=== PATIENT | female | born 1940 | race Caucasian/White ===

== ENCOUNTER 2020-09-16 11:49 | Day surgery (SDC) | payer MEDICARE ==
[~2020-09-16] VITALS: Ht 157.5 cm; Wt 64.2 kg
[~2020-09-16 11:49] MED LIST: ALEN70TA66 PO; AMLO5TAB4 PO; CEFAZOLIN 1,000 MG ONE; FENTANYL PF 250 MCG/5ML ONE; GEMF600T8 PO; GLYCOPYRROLATE 0.2MG/1ML, 5ML ONE; LISI-170 PO; METO25TA91 PO; NEOSTIGMINE 1 MG/ML, 10ML ONE; OMEP20TA62 PO; ONDANSETRON 2MG/ML, 2ML ONE; PROPOFOL 10 MG/ML, 20ML ONE; RIVA20TA PO; ROCURONIUM 10MG/ML,5ML ONE; URSO300C27 PO
[2020-09-16] MEDS ORDERED: VANCOMYCIN 1,000 MG ONE (11:53)
[2020-09-16] MEDS ORDERED: TRANEXAMIC ACID 100 MG/ML, 10ML ONE (11:53)
[2020-09-16] MEDS ORDERED: SODIUM CHLORIDE 0.9% 50 ML ONE (11:53)
[2020-09-16] MEDS ORDERED: KETOROLAC 60 MG/2 ML ONE (11:53)
[2020-09-16] MEDS ORDERED: ROPIvacaine/PF 0.2%, 20 ML ONE (11:53)
[2020-09-16] MEDS ORDERED: EPINEPHRINE 1 MG/ML, 1ML ONE (11:54)
[2020-09-16] MEDS ORDERED: CHLORHEXIDINE 15 ML UDC MM ONE (12:30)
[2020-09-16] MEDS ORDERED: LACTATED RINGERS 1,000 ML IV SCH (12:30)
[2020-09-16] MEDS ORDERED: GABAPENTIN 300 MG CAPSULE PO ONE (12:30)
[2020-09-16] MEDS ORDERED: ACETAMINOPHEN 500 MG TABLET PO ONE (12:30)
[2020-09-16] MEDS ORDERED: [UNRECOGNIZED DRUG - OTHER] PO (12:36)
[2020-09-16] MEDS ORDERED: ALLEGRA PO (12:36)
[2020-09-16] MEDS ORDERED: GAS X PO (12:36)
[2020-09-16] MEDS ORDERED: GREEN TEA PO (12:36)
[2020-09-16 13:07] VITALS: BP 144/77
[2020-09-16] MEDS ORDERED: TRANEXAMIC ACID 1,000 MG in SODIUM CHLORIDE 0.9% 100 ML IVPB ONE (14:00)
[2020-09-16] MEDS ORDERED: OXYcodone IR 5MG TABLET PO PRN (14:00)
[2020-09-16] MEDS ORDERED: HYDROmorphone 1 MG/ML, 1ML INJ IVPush PRN ×2 (14:00→14:30)
[2020-09-16] MEDS ORDERED: CEFAZOLIN PMX 1GM/50ML 50 ML IVPB SCH (14:00)
[2020-09-16] MEDS ORDERED: ONDANSETRON 4 MG TABLET PO PRN (14:00)
[2020-09-16] MEDS ORDERED: DIPHENHYDRAMINE 50 MG/ML, 1ML IVPush PRN (14:00)
[2020-09-16] MEDS ORDERED: ALUMINUM/MAG/SIMETHICONE 30 ML UDC PO PRN (14:00)
[2020-09-16] MEDS ORDERED: POLYETHYLENE GLYCOL 17 GM PACKET PO PRN (14:00)
[2020-09-16] MEDS ORDERED: DEXAMETHASONE 4 MG/ML, 1ML IVPush SCH (14:00)
[2020-09-16] MEDS ORDERED: DIPHENHYDRAMINE 50 MG CAPSULE PO PRN (14:00)
[2020-09-16] MEDS ORDERED: MAGNESIUM HYDROXIDE 8%, 30ML UDC PO PRN (14:00)
[2020-09-16] MEDS ORDERED: POTASSIUM CHLORIDE 20 MEQ in D5%-0.45% NACL 1,000 ML IV SCH (14:00)
[2020-09-16] MEDS ORDERED: PSYLLIUM PACKET PO PRN (14:00)
[2020-09-16] MEDS ORDERED: ONDANSETRON 2MG/ML, 2ML IVPush PRN (14:00)
[2020-09-16] MEDS ORDERED: MEPERIDINE/PF 25MG/0.5ML IVPush PRN (14:30)
[2020-09-16] MEDS ORDERED: morphine SULFATE 10 MG/ML, 1ML IVPush PRN (14:30)
[2020-09-16] MEDS ORDERED: hydrALAzine 20 MG/ML, 1ML IV PRN (14:30)
[2020-09-16] MEDS ORDERED: ACETAMINOPHEN 325 MG TABLET PO PRN (14:30)
[2020-09-16] MEDS ORDERED: OXYcodone 5 MG/5 ML ORAL.SOL UDC PO PRN (14:30)
[2020-09-16] MEDS ORDERED: LABETALOL 5MG/ML, 20ML IV PRN (14:30)
[2020-09-16] MEDS ORDERED: HALOPERIDOL 5 MG/ML IV PRN (14:30)
[2020-09-16] MEDS ORDERED: FENTANYL PF 100 MCG/2ML IV PRN (14:30)
[2020-09-16] MEDS ORDERED: PROMETHAZINE 25 MG/ML, 1ML IVPush PRN (14:30)
[2020-09-16] MEDS ORDERED: FENTANYL PF 100 MCG/2ML ONE ×2 (14:48→16:40)
[2020-09-16] MEDS ORDERED: OXYcodone 5 MG/5 ML ORAL.SOL UDC ONE (16:49)
[2020-09-16] MEDS ORDERED: OXYcodone IR 5MG TABLET ONE (20:54)
[2020-09-16] MEDS ORDERED: DOCUSATE 100 MG CAPSULE PO SCH (21:00)
[2020-09-17] MEDS ORDERED: RIVAROXABAN 10 MG TABLET PO SCH (09:00)
[2020-09-17] MEDS ORDERED: TAMSULOSIN 0.4 MG CAP.ER.24H PO SCH (09:00)
== END 2020-09-16 21:50 | disposition home or self-care (01) ==
LOC: OUT 11:49
PROVIDERS: ATTEND Orthopaedic Surgery
DX: M13.861 Other specified arthritis, right knee (principal); M71.21 Synovial cyst of popliteal space [Baker], right knee; M25.761 Osteophyte, right knee; I12.9 Hypertensive chronic kidney disease with stage 1 through stage 4 chronic kidney disease, or unspecified chronic kidney disease; E11.22 Type 2 diabetes mellitus with diabetic chronic kidney disease; N18.9 Chronic kidney disease, unspecified; I48.91 Unspecified atrial fibrillation; K21.9 Gastro-esophageal reflux disease without esophagitis; Z88.5 Allergy status to narcotic agent; Z88.8 Allergy status to other drugs, medicaments and biological substances; Z79.899 Other long term (current) drug therapy; Z79.01 Long term (current) use of anticoagulants; Z98.890 Other specified postprocedural states
CPT/HCPCS: 27447; 64447; 73560; C1713; C1776; J0171; J0690; J2405; J2704; J2710; J2795; J3010; J7120; J1885; J3370